=== PATIENT | female | born 1995 | race Caucasian/White ===

== ENCOUNTER 2021-09-16 07:42 | Emergency (ER) | payer BC ==
[~2021-09-16] VITALS: Ht 167.6 cm; Wt 75.0 kg
[2021-09-16] MEDS ORDERED: KETOROLAC 30MG/ML VIAL IV STA (08:08)
[2021-09-16] MEDS ORDERED: MORPHINE SULFATE 4 MG/ML CPJ (NOT FOR IM USE) IV STA (08:08)
[2021-09-16] MEDS ORDERED: ONDANSETRON HCL 4MG/2ML INJ IV STA (08:08)
[2021-09-16] MEDS ORDERED: SODIUM CHLORIDE 0.9% 1,000 ML IV ONE (08:15)
[2021-09-16 08:28] VITALS: BP 147/82
[2021-09-16 09:02] LABS: BASOPHILS % 0.3 % (0.0-2.0); CLARITY URINE CLEAR (CLEAR); COLOR URINE YELLOW (YELLOW); EOSINOPHILS % 0.5 % (0.0-5.0); HEMATOCRIT. 41.1 % (36.0-48.0); HEMOGLOBIN. 13.8 g/dL (12.0-16.0); KETONES URINE NEGATIVE (NEGATIVE); LEUKOCYTE ESTERASE URINE TRACE (NEGATIVE); LYMPHOCYTES % 20.5 % (20.0-50.0); MEAN CORPUSCULAR HEMOGLOBIN 29.3 pg (28.0-32.0); MEAN CORPUSCULAR VOLUME 87.2 fL (81.0-99.0); MEAN PLATELET VOLUME 9.7 fl (7.4-10.4); MONOCYTES % 5.8 % (2.0-8.0); NEUTROPHILS % 72.9 % (40.0-76.0); NITRITE URINE NEGATIVE (NEGATIVE); OCCULT BLOOD URINE 1+ (NEGATIVE); PH URINE 6.5 (4.5-8.0); PLATELET 270 x1000/uL (130-400); PROTEIN URINE NEGATIVE (NEGATIVE); RED BLOOD CELL COUNT 4.71 mill/uL (4.2-5.4); RED CELL DISTRIBUTION WIDTH 13.8 % (11.6-14.6); SPECIFIC GRAVITY URINE 1.006 (1.005-1.030); UROBILINOGEN URINE 0.2 E.U./dL (0.2-1.0)
[2021-09-16 09:14] LABS: CHLORIDE 107 mEq/L (98-107)
[2021-09-16] MEDS ORDERED: DOXY-326 MT (13:07)
[2021-09-16] MEDS ORDERED: IBUP-2029 MT (13:07)
[2021-09-16] MEDS ORDERED: METR500T MT (13:07)
[2021-09-16] MEDS ORDERED: HYDR-4001 MT (13:07)
[2021-09-16] MEDS ORDERED: ONDA4TAB5 MT (13:07)
[2021-09-16] MEDS ORDERED: CEFTRIAXONE SODIUM 500 MG/VIAL IM ONE (13:15)
[2021-09-16] MEDS ORDERED: IOHEXOL-300 100 ML BOTTLE ONE (13:40)
== END 2021-09-16 13:29 | disposition home or self-care (01) ==
LOC: ER 07:42
DX: N83.201 Unspecified ovarian cyst, right side (principal); N73.9 Female pelvic inflammatory disease, unspecified
CPT/HCPCS: 36415; 74177; 76830; 76856; 80053; 81003; 81025; 83690; 85025; 96361; 96372; 96374; 96375; 99285; J0696; J1885; J2270; J2405; J7030; Q9967